=== PATIENT | male | born 1955 | race Caucasian/White ===

== ENCOUNTER → 2019-12-05 08:45 | Outpatient (BNVA) | payer MEDICARE, OTHER, SELFPAY | PROVIDERS: PCP Family Medicine; Visit Provider Urology | DX: Z76.89 Persons encountering health services in other specified circumstances (principal) ==

== ENCOUNTER → 2020-02-23 08:48 | Outpatient (BNVA) | payer MEDICARE, OTHER, SELFPAY | PROVIDERS: PCP Family Medicine; Visit Provider Urology | DX: N40.1 Benign prostatic hyperplasia with lower urinary tract symptoms (principal); Z85.51 Personal history of malignant neoplasm of bladder; Z79.899 Other long term (current) drug therapy | CPT/HCPCS: 52000; 81002; Q3014 ==

== ENCOUNTER 2020-06-06 08:44 | Outpatient (REF) | payer MEDICARE, OTHER, SELFPAY ==
[2020-06-08 08:48] LABS: Urine Cytology See Pathology rpt
== END 2020-06-06 08:45 | disposition home or self-care (01) ==
LOC: CF 08:44
PROVIDERS: Visit Provider Urology
DX: C67.9 Malignant neoplasm of bladder, unspecified (principal); N40.1 Benign prostatic hyperplasia with lower urinary tract symptoms
CPT/HCPCS: 52000; 81002; 88112; 88305; 99212

== ENCOUNTER → 2020-09-05 09:08 | Outpatient (BNVA) | payer MEDICARE, OTHER, SELFPAY | PROVIDERS: PCP Family Medicine; Visit Provider Urology | DX: N39.0 Urinary tract infection, site not specified (principal); Z85.51 Personal history of malignant neoplasm of bladder | CPT/HCPCS: 99212 ==

== ENCOUNTER 2020-12-06 08:44 | Outpatient (REF) | payer MEDICARE, OTHER, SELFPAY ==
[2020-12-07 14:33] LABS: Urine Cytology See Pathology rpt
== END 2020-12-06 08:45 | disposition home or self-care (01) ==
LOC: HO.LAB 08:44
PROVIDERS: PCP Family Medicine; Visit Provider Urology
DX: C67.9 Malignant neoplasm of bladder, unspecified (principal); N52.01 Erectile dysfunction due to arterial insufficiency; N39.0 Urinary tract infection, site not specified
CPT/HCPCS: 52000; 88112; 99212

== ENCOUNTER 2021-05-28 08:34 | Outpatient (REF) | payer MEDICARE, OTHER, SELFPAY ==
[2021-05-30 07:36] LABS: Urine Cytology See Pathology rpt
== END 2021-05-28 08:35 | disposition home or self-care (01) ==
LOC: HO.LAB 08:34
PROVIDERS: PCP Family Medicine; Visit Provider Urology
DX: C67.9 Malignant neoplasm of bladder, unspecified (principal); N39.0 Urinary tract infection, site not specified; N52.01 Erectile dysfunction due to arterial insufficiency; Z85.51 Personal history of malignant neoplasm of bladder
CPT/HCPCS: 52000; 88112; 99212

== ENCOUNTER 2021-12-10 09:57 | Outpatient (REF) | payer MEDICARE, OTHER, SELFPAY ==
[2021-12-10 17:01] LABS: Urine Cytology See Pathology rpt
== END 2021-12-10 09:58 | disposition home or self-care (01) ==
LOC: HO.LAB 09:57
PROVIDERS: Visit Provider Urology
DX: C67.9 Malignant neoplasm of bladder, unspecified (principal); N35.919 Unspecified urethral stricture, male, unspecified site; N39.0 Urinary tract infection, site not specified
CPT/HCPCS: 52000; 88112; 99212

== ENCOUNTER 2022-06-10 08:36 | Outpatient (REF) | payer MEDICARE, OTHER, SELFPAY ==
[2022-06-10 15:59] LABS: Urine Cytology See Pathology rpt
== END 2022-06-10 08:37 | disposition home or self-care (01) ==
LOC: HO.LAB 08:36
PROVIDERS: PCP Family Medicine; Visit Provider Urology
DX: C67.9 Malignant neoplasm of bladder, unspecified (principal); N35.919 Unspecified urethral stricture, male, unspecified site; N39.0 Urinary tract infection, site not specified; N52.01 Erectile dysfunction due to arterial insufficiency
CPT/HCPCS: 52000; 88112; 99212

== ENCOUNTER 2022-12-09 08:32 | Outpatient (REF) | payer MEDICARE, OTHER, SELFPAY ==
[2022-12-09 16:41] LABS: Urine Cytology See Pathology rpt
== END 2022-12-09 08:33 | disposition home or self-care (01) ==
LOC: HO.LAB 08:32
PROVIDERS: Visit Provider Urology
DX: C67.9 Malignant neoplasm of bladder, unspecified (principal); N52.01 Erectile dysfunction due to arterial insufficiency; N99.112 Postprocedural membranous urethral stricture, male
CPT/HCPCS: 52000; 81003; 88112; 99212

== ENCOUNTER 2022-12-09 08:32 | Outpatient (AMB) | payer MEDICARE, OTHER, SELFPAY ==
--- NOTE | 2022-12-09 08:51 | MHC.OFFVIS ---
Intake Intake Visit Reasons: 6m/cysto(Bladder Cancer) Intake Note: Patient is Present for Cystoscopy Urology Med: Tadalafil, Tamsulosin Antibiotic Allergy: None Blood Thinner: None Pharmacy: [facility] URO- G Disposable Cystoscope lot: [id number] exp:06/22/2024 Allergies No Known Allergies [No Known Allergies*] Allergy (Verified 12/09/22 08:52) HPI HPI Comments History of Present Illness Details Konrad is a pleasant male. He is a patient of Dr. Delgado. He is seen for the following urologic condition. - bladder cancer - lower urinary tract symptoms - urethral stricture Has been driving his new blue Corvette Episode of blood in urine approximately 6 weeks ago Has some prostate irritation with small prostate stones Cystoscopy clear - mild urethral stricture known Follow in 6 months Is having upcoming shoulder investigations Bladder cancer Originally diagnosed with Dr. Hansen 2014 TURBT 2014 low-grade papillary, TURBT February 2019 low-grade papillary superficial Cystoscopy 05/29 NAD, 09/28 NAD, 03/01 NAD, 05/30 NAD, 11/29 NAD. 05/30 NAD, 05/31 NAD, 11/30 NAD. 07/01 NAD, 01/01 NAD Cytology 11/29 NAD Treatment plan - continue with surveillance cystoscopy every 6 months Lower urinary tract symptoms Prostate laser February 2019 Wide open bladder neck on cystoscopy PSA 05/30 0.7 Erectile dysfunction Good response to 20 mg tadalafil as needed Prescription provided Urethral stricture Followed prior procedure Required 2-3 months of [facility] PFSH Medical History History of bladder cancer Benign prostatic hyperplasia with lower urinary tract symptoms History of urinary tract infection Surgical History History of surgery History of cystoscopy History of vasectomy Review of Systems Const Denies chills and Denies fever(s) Card Reports no additional complaints and Denies syncope Resp Denies cough GI Denies abdominal pain and Denies heartburn Reports as per HPI and Denies change in libido Neuro Denies syncope Psych Denies change in libido Endo Denies change in libido Physical Exam Const General: cooperative, healthy appearing, comfortable and no acute distress Orientation/consciousness: patient oriented x3 HEENT Face and sinus: Yes normal facial exam Mouth: moist mucous membranes Neck Neck: Yes normal visual inspection, Yes full ROM and Yes trachea midline Chest Chest palpation & inspection: normal inspection of the chest Resp Effort & Inspection: normal respiratory effort, able to speak in complete sentences and no respiratory distress GI Inspection: Yes normal to inspection Back/Spine/Pelvis Cervical Spine: normal cervical lordosis Thoracic/Lumbar Spine: thoracic and lumbar spine normal to inspection Skin General skin exam: no rashes or lesions noted Neuro General: patient oriented x3, gait normal, tone normal and moves all extremities Extrem General: Yes normal to inspection and Yes capillary refill normal Office Procedures Cystoscopy Consent Discussed risk and benefit or proposed procedure with the patient. Information consent for procedure given to the patient. Discussed technical aspects, risks, benefits and alternatives in full. Addressed all of the patient's questions and concerns regarding the procedure. The patient demonstrated knowledge and understanding. They wish to proceed with this procedure. Preparation The patient was prepped in the usual manner. A filling operator was present and in the room. Genitalia was prepped with betadine solution in a sterile manner. Lidocaine Jelly 2% was placed into the urethra and 16Fr flexible Olympus cystoscope was inserted into the meatus after adequate lubrication. Procedure Meatus circumcised Urethra anterior urethra with small annular stricture Prostatic Urethra TURP defect Bladder examination with retroflexion of cystoscope Bladder Orifices normal shape and position Bladder Capacity medium Trabeculations - Cellule Formation - Diverticulum Formation - Mucosal Erythema -- Bladder Tumor - [id number] DISPOSABLE SCOPE URO-G FLEXIBLE SCOPE Procedure code (CPT) selection complete Office Meds lidocaine HCl 2 % mucosal jelly in applicator Performing Provider: Taj Richter MD Performing Location: [facility] [place] [facility] Administered by: Nacoh Rodriguez LPN on 12/09/22 09:09 Dose Route Admin Location Dispensed Lot Number Expiration Date [facility] [place] Separator Operator [employer] 10 mL intra-urethral 10 mL nitrofurantoin monohydrate/macrocrystals 100 mg capsule Performing Provider: Taj Richter MD Performing Location: [facility] [place] [facility] Administered by: Nacho Rodriguez LPN on 12/09/22 09:09 Dose Route Admin Location Dispensed Lot Number Expiration Date [facility] [place] Separator Operator [employer] 100 mg PO 1 cap naproxen 500 mg tablet Performing Provider: Taj Richter MD Performing Location: [facility] [place] [facility] Administered by: Nacho Rodriguez LPN on 12/09/22 09:09 Dose Route Admin Location Dispensed Lot Number Expiration Date NDC Separator Operator [employer] 500 mg PO 1 tab Results AMB Urinalysis, Automated UA Leukoctes 0 Rosa/uL Last Edit by Renetta Irizarry Logan on 12/09/22 09:06 UA Nitrite Negative Last Edit by Renetta Irizarry A on 12/09/22 09:06 UA Urobilinogen 0.2 mg/dL Last Edit by Renetta Irizarry A on 12/09/22 09:06 UA Protein 0 mg/dL Last Edit by Renetta Irizarry A on 12/09/22 09:06 UA pH 7.0 Last Edit by Renetta Irizarry A on 12/09/22 09:06 UA Blood 0 Anthony/uL Last Edit by Renetta Irizarry A on 12/09/22 09:06 UA Specific [place] 1.015 Last Edit by Renetta Irizarry A on 12/09/22 09:06 UA Ketone Negative Last Edit by Renetta Irizarry A on 12/09/22 09:06 UA Bilirubin 0 mg/dL Last Edit by Renetta Irizarry A on 12/09/22 09:06 UA Glucose 0 mg/dL Last Edit by Renetta Irizarry A on 12/09/22 09:06 Results Reviewed Results Reviewed: Laboratory Last Values Urine pH (Auto) 7.0 12/09/22 08:53 Specific [place] (Auto) 1.015 12/09/22 08:53 Urine Protein (Auto) 0 mg/dL 12/09/22 08:53 Glucose (UA)(Auto) 0 mg/dL 12/09/22 08:53 Urine Ketones (Auto) Negative 12/09/22 08:53 Urine Blood (Auto) 0 Anthony/uL 12/09/22 08:53 Urine Nitrite (Auto) Negative 12/09/22 08:53 Urine Bilirubin (Auto) 0 mg/dL 12/09/22 08:53 Urine Urobilinogen (Auto) 0.2 mg/dL 12/09/22 08:53 Leukocyte Esterase (Auto) 0 Rosa/uL 12/09/22 08:53 Assessment & Plan Assessment & Plan (1) Bladder cancer: Comment: TURBT 2019 Code(s): C67.9 - Malignant neoplasm of bladder, unspecified Qualifiers: Bladder location: unspecified site Qualified Code(s): C67.9 - Malignant neoplasm of bladder, unspecified (2) Erectile dysfunction due to arterial insufficiency: Code(s): N52.01 - Erectile dysfunction due to arterial insufficiency (3) Urethral stricture: Code(s): N35.919 - Unspecified urethral stricture, male, unspecified site Qualifiers: Urethral stricture type: post-procedural Urethral stricture sex-location: male urethra-membranous Qualified Code(s): N99.112 - Postprocedural membranous urethral stricture, male Plan Six follow-up cystoscopy Orders: Orders AMB Urinalysis Automated Today Z13.9 - Encounter for screening, unspecified AMB Cystoscopy Today C67.9 - Malignant neoplasm of bladder, unspecified Urine Cytology Today C67.9 - Malignant neoplasm of bladder, unspecified Patient Instructions: Imaging studies, laboratory and physical exam results were discussed and reviewed in detail. No major barriers to patient understanding were identified. An opportunity to ask questions regarding the treatment plan was provided. All questions were answered. The patient expressed understanding and agreement with the above treatment plan. The patient is aware they should contact our office by phone for worsening of their current condition or the appearance of new urologic symptoms. Compliance is encouraged with any medications and followup testing that is ordered. It is a privilege to participate in the urologic care of your patient. If you have any questions or concerns regarding treatment for the above conditions, or other urologic issues, please do not hesitate to contact me. The office telephone contact is [phone]. This note is constructed using voice recognition software. While every effort has been made to ensure accuracy prop and scenery maker errors may have been included. Yours sincerely, Dr Taj Richter MD, [facility] - Urology Providers of Expert, Compassionate Care for the Genitourinary System Coding Level of Care Code Est Pt Level 3 (72438) Diagnoses Malignant neoplasm of urinary bladder, unspecified site C67.9 Bladder location: unspecified site Erectile dysfunction due to arterial insufficiency N52.01 Postprocedural membranous urethral stricture N99.112 Urethral stricture type: post-procedural Urethral stricture sex-location: male urethra-membranous CPT Codes Cystoscopy - CPT: [id number] ([id number])
== END 2022-12-09 09:44 | disposition home or self-care (01) ==
PROVIDERS: Visit Provider Urology
DX: C67.9 Malignant neoplasm of bladder, unspecified (principal); N52.01 Erectile dysfunction due to arterial insufficiency; N99.112 Postprocedural membranous urethral stricture, male; Z13.9 Encounter for screening, unspecified
CPT/HCPCS: 52000; 99213

== ENCOUNTER 2023-06-09 08:40 | Outpatient (AMB) | payer MEDICARE, OTHER, SELFPAY ==
--- NOTE | 2023-06-09 08:56 | MHC.OFFVIS ---
Intake Visit Reasons: 6M Cystoscopy(Bladder CA) Intake Note: Patient is Present for Cystoscopy Urology Med: Tamsulosin(Patient states he does not take Tadalafil much) Antibiotic Allergy:None Blood Thinner:None URO- G Disposable Cystoscope lot: [id number] exp:12/18/2025 Allergies No Known Allergies [No Known Allergies*] Allergy (Verified 06/09/23 08:59) HPI Comments Details: Konrad is a pleasant male. He is a patient of Dr. Delgado. He is seen for the following urologic condition. - bladder cancer - lower urinary tract symptoms - urethral stricture Has been driving his new blue [employer] - Nathan Voss has the same model Prior small prostate stone Cystoscopy clear - mild urethral stricture known - minimal Follow in 6 months Bladder cancer Originally diagnosed with Dr. Hansen 2014 TURBT 2014 low-grade papillary, TURBT February 2019 low-grade papillary superficial Cystoscopy 05/29 NAD, 09/28 NAD, 03/01 NAD, 05/30 NAD, 11/29 NAD. 05/30 NAD, 05/31 NAD, 11/30 NAD. 07/01 NAD, 01/01 NAD, 06/02 NAD Cytology 11/29 NAD Treatment plan - continue with surveillance cystoscopy every 6 months Lower urinary tract symptoms Prostate laser February 2019 Wide open bladder neck on cystoscopy PSA 05/30 0.7 Erectile dysfunction Good response to 20 mg tadalafil as needed Prescription provided Urethral stricture Followed prior procedure Required 2-3 months of [facility] Medical History History of bladder cancer Benign prostatic hyperplasia with lower urinary tract symptoms History of urinary tract infection Surgical History History of surgery History of cystoscopy History of vasectomy Review of Systems Const Denies chills and Denies fever(s) Card Reports no additional complaints and Denies syncope Resp Denies cough GI Denies abdominal pain and Denies heartburn Reports as per HPI and Denies change in libido Neuro Denies syncope Psych Denies change in libido Endo Denies change in libido Physical Exam Const General: cooperative, healthy appearing, comfortable and no acute distress Orientation/consciousness: patient oriented x3 HEENT Face and sinus: Yes normal facial exam Mouth: moist mucous membranes Neck Neck: Yes normal visual inspection, Yes full ROM and Yes trachea midline Chest Chest palpation & inspection: normal inspection of the chest Resp Effort & Inspection: normal respiratory effort, able to speak in complete sentences and no respiratory distress GI Inspection: Yes normal to inspection Back/Spine/Pelvis Cervical Spine: normal cervical lordosis Thoracic/Lumbar Spine: thoracic and lumbar spine normal to inspection Skin General skin exam: no rashes or lesions noted Neuro General: patient oriented x3, gait normal, tone normal and moves all extremities Extrem General: Yes normal to inspection and Yes capillary refill normal Office Procedures Cystoscopy Consent Discussed risk and benefit or proposed procedure with the patient. Information consent for procedure given to the patient. Discussed technical aspects, risks, benefits and alternatives in full. Addressed all of the patient's questions and concerns regarding the procedure. The patient demonstrated knowledge and understanding. They wish to proceed with this procedure. Preparation The patient was prepped in the usual manner. A nursing informatics specialist was present and in the room. Genitalia was prepped with betadine solution in a sterile manner. Lidocaine Jelly 2% was placed into the urethra and 16Fr flexible Olympus cystoscope was inserted into the meatus after adequate lubrication. Procedure Cystoscopy performed using a disposable Urovue digital 16 Palauan cystoscope. Meatus uncircumcised Urethra anterior urethra with soft annular stricture Prostatic Urethra prior TURP with small prostate stone Bladder examination with retroflexion of cystoscope Bladder Orifices normal shape and position Bladder Capacity no Trabeculations grade 2 Cellule Formation yes Diverticulum Formation dome small Mucosal Erythema normal Bladder Tumor none [id number] DISPOSABLE SCOPE URO-G FLEXIBLE SCOPE Procedure code (CPT) selection complete Office Meds lidocaine HCl 2 % mucosal jelly in applicator Performing Provider: Taj Richter MD [place] [place] [facility] Administered by: Delisa Vasquez RN on 06/09/23 09:05 Dose Route Admin Location Dispensed Lot Number Expiration Date ND [employer] 10 mL intra-urethral 10 mL nitrofurantoin monohydrate/macrocrystals 100 mg capsule Performing Provider: Taj Richter MD Performing Location: [facility] [place] [facility] Administered by: Delisa Vasquez RN on 06/09/23 09:05 Dose Route Admin Location Dispensed Lot Number Expiration Date ND [employer] Software Engineer 100 mg PO 1 cap naproxen 500 mg tablet Performing Provider: Taj Richter MD Performing [facility] [place] [facility] Administered by: Delisa Vasquez RN on 06/09/23 09:05 Dose Route Admin Location Dispensed Lot Number Expiration Date NDC [employer] Software Engineer 500 mg PO 1 tab Results AMB Urinalysis, Automated UA Leukoctes 0 Rosa/uL Last Edit by JUAN Calderon on 06/09/23 09:07 UA Nitrite Negative Last Edit by NADEEM CalderonA on 06/09/23 09:07 UA Urobilinogen 0.2 mg/dL Last Edit by Renetta Irizarry A on 06/09/23 09:07 UA Protein 15 mg/dL Last Edit by NADEEM CalderonA on 06/09/23 09:07 UA pH 6.0 Last Edit by Renetta Irizarry A on 06/09/23 09:07 UA Blood 0 Anthony/uL Last Edit by JUAN Calderon on 06/09/23 09:07 UA Specific [place] 1.015 Last Edit by Renetta Irizarry A on 06/09/23 09:07 UA Ketone Negative Last Edit by Renetta Irizarry A on 06/09/23 09:07 UA Bilirubin 0 mg/dL Last Edit by Renetta rIizarry A on 06/09/23 09:07 UA Glucose 0 mg/dL Last Edit by Renetta Irizarry A on 06/09/23 09:07 Results Reviewed Results Reviewed: Laboratory Last Values Urine pH (Auto) 6.0 06/09/23 09:00 Specific [place] (Auto) 1.015 06/09/23 09:00 Urine Protein (Auto) 15 mg/dL 06/09/23 09:00 Glucose (UA)(Auto) 0 mg/dL 06/09/23 09:00 Urine Ketones (Auto) Negative 06/09/23 09:00 Urine Blood (Auto) 0 Anthony/uL 06/09/23 09:00 Urine Nitrite (Auto) Negative 06/09/23 09:00 Urine Bilirubin (Auto) 0 mg/dL 06/09/23 09:00 Urine Urobilinogen (Auto) 0.2 mg/dL 06/09/23 09:00 Leukocyte Esterase (Auto) 0 Rosa/uL 06/09/23 09:00 Assessment & Plan Assessment & Plan (1) Bladder cancer: Comment: TURBT 2019 Code(s): C67.9 - Malignant neoplasm of bladder, unspecified Category: Medical Qualifiers: Bladder location: unspecified site Qualified Code(s): C67.9 - Malignant neoplasm of bladder, unspecified (2) Recurrent UTI (urinary tract infection): Code(s): N39.0 - Urinary tract infection, site not specified Category: Medical (3) Urethral stricture: Code(s): N35.919 - Unspecified urethral stricture, male, unspecified site Category: Medical Qualifiers: Urethral stricture type: post-procedural Urethral stricture sex-location: male urethra-membranous Qualified Code(s): N99.112 - Postprocedural membranous urethral stricture, male Plan Six-month follow-up cysto Orders: Orders AMB Cystoscopy Today Z85.51 - Personal history of malignant neoplasm of bladder AMB Urinalysis Automated Today Z13.9 - Encounter for screening, unspecified, Z85.51 - Personal history of malignant neoplasm of bladder FISH Bladder Cancer Today Z85.51 - Personal history of malignant neoplasm of bladder Patient Instructions: Imaging studies, laboratory and physical exam results were discussed and reviewed in detail. No major barriers to patient understanding were identified. An opportunity to ask questions regarding the treatment plan was provided. All questions were answered. The patient expressed understanding and agreement with the above treatment plan. The patient is aware they should contact our office by phone for worsening of their current condition or the appearance of new urologic symptoms. Compliance is encouraged with any medications and followup testing that is ordered. It is a privilege to participate in the urologic care of your patient. If you have any questions or concerns regarding treatment for the above conditions, or other urologic issues, please do not hesitate to contact me. The office telephone contact is [phone]. This note is constructed using voice recognition software. While every effort has been made to ensure accuracy ordering machine operator errors may have been included. Yours sincerely, Dr Taj Richter MD, [facility] - Urology Providers of Expert, Compassionate Care for the Genitourinary System Coding Level of Care Code Procedure Only Diagnoses Malignant neoplasm of urinary bladder, unspecified site C67.9 Bladder location: unspecified site Recurrent UTI (urinary tract infection) N39.0 Postprocedural membranous urethral stricture N99.112 Urethral stricture type: post-procedural Urethral stricture sex-location: male urethra-membranous CPT Codes Cystoscopy - CPT: [id number] ([id number])
== END 2023-06-09 09:27 | disposition home or self-care (01) ==
PROVIDERS: PCP Family Medicine; Visit Provider Urology
DX: N39.0 Urinary tract infection, site not specified (principal); N99.112 Postprocedural membranous urethral stricture, male; Z85.51 Personal history of malignant neoplasm of bladder; Z13.9 Encounter for screening, unspecified
CPT/HCPCS: 52000

== ENCOUNTER 2023-06-09 08:40 | Outpatient (REF) | payer MEDICARE, OTHER, SELFPAY | END 2023-06-09 08:41 | disposition home or self-care (01) | LOC: HO.LAB 08:40 | PROVIDERS: PCP Family Medicine; Visit Provider Urology | DX: Z85.51 Personal history of malignant neoplasm of bladder (principal) | CPT/HCPCS: 52000; 81003; 88121 ==

== ENCOUNTER 2023-12-09 08:40 | Outpatient (REF) | payer MEDICARE, OTHER, SELFPAY ==
[2023-12-09 16:39] LABS: Urine Cytology See Pathology rpt
== END 2023-12-09 08:41 | disposition home or self-care (01) ==
LOC: HO.LAB 08:40
PROVIDERS: PCP Family Medicine; Visit Provider Urology
DX: Z85.51 Personal history of malignant neoplasm of bladder (principal); N40.1 Benign prostatic hyperplasia with lower urinary tract symptoms; N52.01 Erectile dysfunction due to arterial insufficiency; Z98.890 Other specified postprocedural states
CPT/HCPCS: 52000; 88112; 99212

== ENCOUNTER 2024-06-08 08:49 | Outpatient (REF) | payer MEDICARE, OTHER, SELFPAY ==
[2024-06-08 17:20] LABS: Urine Cytology See Pathology rpt
== END 2024-06-08 08:50 | disposition home or self-care (01) ==
LOC: HO.LAB 08:49
PROVIDERS: PCP Family Medicine; Visit Provider Urology
DX: C67.9 Malignant neoplasm of bladder, unspecified (principal)
CPT/HCPCS: 88112

== ENCOUNTER 2024-06-08 08:49 | Outpatient (AMB) | payer MEDICARE, OTHER, SELFPAY ==
--- NOTE | 2024-06-08 08:52 | A.OFFVIS_ITS ---
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 He is a patient of Dr. Delgado. He is seen for the following urologic condition. 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 Hansen 2014 TURBT 2014 low-grade papillary, TURBT February 2019 low-grade papillary superficial Cystoscopy 05/29 NAD, 09/28 NAD, 03/01 NAD, 05/30 NAD, 11/29 NAD, 05/30 NAD, 05/31 NAD, 11/30 NAD, 07/01 NAD, 01/01 NAD, 06/02 NAD Cytology 11/29 NAD Treatment plan - continue with surveillance cystoscopy every 6 months Lower urinary tract symptoms Prostate laser February 2019 Wide open bladder neck on cystoscopy PSA 05/30 0.7 Erectile dysfunction Good response to 20 mg tadalafil as needed Prescription provided Urethral stricture Followed prior procedure [facility] History History of bladder cancer Benign prostatic hyperplasia with lower urinary tract symptoms History of urinary tract infection Surgical History History of surgery History of cystoscopy History of vasectomy Office Procedures Cystoscopy Consent Discussed risk and benefit or proposed procedure with the patient. Information consent for procedure given to the patient. Discussed technical aspects, risks, benefits and alternatives in full. Addressed all of the patient's questions and concerns regarding the procedure. The patient demonstrated knowledge and understanding. They wish to proceed with this procedure. Preparation The patient was prepped in the usual manner. A account manager relief was present and in the room. Genitalia was prepped with betadine solution in a sterile manner. Lidocaine Jelly 2% was placed into the urethra and 16Fr flexible Olympus cystoscope was inserted into the meatus after adequate lubrication. Procedure Cystoscopy performed using a disposable Urovue digital 16 [place] cystoscope. Meatus uncircumcised Urethra anterior urethra with soft annular stricture Prostatic Urethra prior TURP with small prostate stone Bladder examination with retroflexion of cystoscope Bladder Orifices normal shape and position Bladder Capacityno Trabeculations grade 2 Cellule Formation yes Diverticulum Formation dome small [place]ucosal [place] [id number] DISPOSABLE SCOPE URO-G FLEXIBLE SCOPE Procedure code (CPT) selection complete Office Meds lidocaine HCl 2 % mucosal jelly in applicator Performing Provider: Taj Richter MD Performing Location: [facility] Administered by: Emma Henderson RN on 06/08/24 09:10 Dose Route Admin Location Dispensed Lot Number Expiration Date NDC Commercial Subcontractor 10 mL intra-urethral 10 mL nitrofurantoin monohydrate/macrocrystals 100 mg capsule Performing Provider: Taj Richter MD Performing Location: [facility] Administered by: Emma Henderson RN on 06/08/24 09:10 Dose Route Admin Location Dispensed Lot Number Expiration Date ND Commercial Subcontractor 100 mg PO 1 cap Results AMB Urinalysis, Automated UA Leukoctes 0 Rosa/uL Last Edit by DEN Godinez on 06/08/24 09:06 UA Nitrite Negative Last Edit by DEN Godinez on 06/08/24 09:06 UA Urobilinogen 0.2 mg/dL Last Edit by DEN Godinez on 06/08/24 09:0 6 UA Protein 0 mg/dL Last Edit by DEN Godinez on 06/08/24 09:06 UA pH 6.0 Last Edit by DEN Godinez on 06/08/24 09:06 UA Blood 0 Anthony/uL Last Edit by DEN Godinez on 06/08/24 09:06 UA Specific [place] 1.025 Last Edit by DEN Godinez on 06/08/24 09: 06 UA Ketone Negative Last Edit by DEN Godinez on 06/08/24 09:06 UA Bilirubin 0 mg/dL Last Edit by DEN Godinez on 06/08/24 09:06 UA Glucose 0 mg/dL Last Edit by DEN Godinez on 06/08/24 09:06 Results Reviewed Results Reviewed: Laboratory Last Values Urine pH (Auto) 6.0 06/08/24 09:05 Specific [place] (Auto) 1.025 06/08/24 09:05 Urine Protein (Auto) 0 mg/dL 06/08/24 09:05 Glucose (UA)(Auto) 0 mg/dL 06/08/24 09:05 Urine Ketones (Auto) Negative 06/08/24 09:05 Urine Blood (Auto) 0 Anthony/uL 06/08/24 09:05 Urine Nitrite (Auto) Negative 06/08/24 09:05 Urine Bilirubin (Auto) 0 mg/dL 06/08/24 09:05 Urine Urobilinogen (Auto) 0.2 mg/dL 06/08/24 09:05 Leukocyte Esterase (Auto) 0 Rosa/uL 06/08/24 09:05 Assessment & Plan Assessment & Plan (1) Benign prostatic hyperplasia with lower urinary tract symptoms: Code(s): N40.1 - Benign prostatic hyperplasia with lower urinary tract symptoms Category: Medical (2) Bladder cancer: Comment: TURBT 2019 Code(s): C67.9 - Malignant neoplasm of bladder, unspecified Category: Medical Qualifiers: Bladder location: unspecified site Qualified Code(s): C67.9 - Malignant neoplasm of bladder, unspecified (3) Urethral stricture: Code(s): N35.919 - Unspecified urethral stricture, male, unspecified site Category: Medical Qualifiers: Urethral stricture type: post-procedural Urethral stricture sex- location: male urethra-membranous Qualified Code(s): N99.112 - Postprocedural membranous urethral stricture, male Plan Twelve month follow-up Orders: Orders AMB Urinalysis Automated 06/08/24 Z13.9 - Encounter for screening, unspecified AMB Cystoscopy 06/08/24 N99.112 - Postprocedural membranous urethral stricture, male, C67.9 - Malignant neoplasm of bladder, unspecified Urine Cytology 06/08/24 C67.9 - Malignant neoplasm of bladder, unspecified Patient Instructions: This note is constructed using voice recognition software. While every effort has been made to ensure accuracy filemaker developer errors may have been included. Imaging studies, laboratory and physical exam results were discussed and reviewed in detail. No major barriers to patient understanding were identified. An opportunity to ask questions regarding the treatment plan was provided. All questions were answered. The patient expressed understanding and agreement with the above treatment plan. The patient is aware they should contact our office by phone for worsening of their current condition or the appearance of new urologic symptoms. Compliance is encouraged with any medications and followup testing that is ordered. It is a privilege to participate in the urologic care of your patient. If you have any questions or concerns regarding treatment for the above conditions, or other urologic issues, please do not hesitate to contact me. The office telephone contact is [phone]. Sincerely, Dr Taj Richter MD, [facility] - Urology Compassionate Specialist Care for the Genitourinary System Coding Level of Care Code Est Pt Level 3 (42167) Diagnoses Benign prostatic hyperplasia with lower urinary tract symptoms N40.1 Malignant neoplasm of urinary bladder, unspecified site C67.9 Bladder location: unspecified site Postprocedural membranous urethral stricture N99.112 Urethral stricture type: post-procedural Urethral stricture sex-location: male urethra-membranous CPT Codes Cystoscopy - CPT: [id number] ([id number])
== END 2024-06-08 09:48 | disposition home or self-care (01) ==
LOC: HO.HUSH 08:50
PROVIDERS: PCP Family Medicine; Visit Provider Urology
DX: N40.1 Benign prostatic hyperplasia with lower urinary tract symptoms (principal); C67.9 Malignant neoplasm of bladder, unspecified; N99.112 Postprocedural membranous urethral stricture, male
CPT/HCPCS: 52000; 99213